=== PATIENT | male | born 1970 | race Caucasian/White ===

== ENCOUNTER → 2018-07-10 | Outpatient (CLI) | payer BC ==
[~2018-07-10] MED LIST: LRT10T PO; TEST200V3 IM
== END | disposition home or self-care (01) ==
LOC: PREOP 05:41
PROVIDERS: ATTEND Surgery
DX: Z01.818 Encounter for other preprocedural examination (principal)

== ENCOUNTER 2018-10-12 09:15 | Outpatient (CLI) | payer BC ==
[~2018-10-12] VITALS: Ht 172.7 cm; Wt 102.1 kg
[2018-10-12] MEDS ORDERED: TEMA30CA PO (11:02)
[2018-10-12] MEDS ORDERED: AMIT25TA9 PO (11:02)
[2018-10-12] MEDS ORDERED: CITA20TA9 PO (11:02)
[2018-10-12] MEDS ORDERED: FENO145T37 PO (11:02)
== END 2018-10-12 11:03 | disposition home or self-care (01) ==
LOC: PREOP 09:15
PROVIDERS: ATTEND Surgery
DX: Z01.818 Encounter for other preprocedural examination (principal)

== ENCOUNTER 2018-10-16 08:11 | Day surgery (SDC) | payer BC ==
[~2018-10-16] VITALS: Ht 172.7 cm; Wt 102.1 kg
[~2018-10-16 08:11] MED LIST changes: +AMIT25TA9 PO; +CITA20TA9 PO; +FENO145T37 PO; +TEMA30CA PO
--- OUTSIDE RECORDS SUMMARY | 2018-10-16 08:14 | XMS REPORT | Continuity of Care Document ---
Author Author [facility] Organization [facility] Address Unknown Phone Unavailable Allergies Active Description Code Type Severity Reaction Onset Reported/Identified Relationship to Patient Clinical Status Yes No Known Drug Allergies [id number] Drug Allergy Unknown N/A 08/01/2010 Medications There is no data. Problems Date Dx Coded Attending Type Code Diagnosis Diagnosed By 08/01/2010 Ot 780.2 11/06/2014 Ot 715.36 11/06/2014 Ot 722.52 06/27/2015 HOWARD MEZA, KEVIN Cutler Ot 721.3 10/02/2015 LURDES MEZA, HUMBERTO Gibson Ot M76.61 10/03/2015 Ot M76.61 02/05/2016 HOWARD MEZA, KEVIN Cutler Ot 721.3 02/05/2016 Ot M76.61 02/05/2016 LURDES MEZA, HUMBERTO Gibson Ot M76.61 02/06/2016 HOWARD MEZA, KEVIN Cutler Ot 721.3 02/06/2016 Ot M76.61 02/06/2016 LURDES MEZA, HUMBERTO Gibson Ot M76.61 07/11/2018 TEAGAN ERWIN DO Ot Z01.818 ENCOUNTER FOR OTHER PREPROCEDURAL EXAMIN 10/12/2018 TEAGAN ERWIN DO Ot Z01.818 ENCOUNTER FOR OTHER PREPROCEDURAL EXAMIN 10/12/2018 TEAGAN ERWIN DO Ot Z01.818 ENCOUNTER FOR OTHER PREPROCEDURAL EXAMIN Procedures There is no data. Results There is no data. Encounters ACCT No. Visit Date/Time Discharge Status Pt. Type Provider Facility Loc./Unit Complaint [id number] 10/12/2018 09:15:00 10/12/2018 11:03:00 DIS Outpatient TEAGAN ERWIN DO [facility] PREOP COLONOSCOPY [id number] 07/17/2018 13:00:00 07/17/2018 23:59:59 CLS Preadmit TEAGAN ERWIN DO [facility] ENDO SCREENING [id number] 07/10/2018 05:41:00 07/10/2018 23:59:59 CLS Outpatient TEAGAN ERWIN DO [facility] PREOP COLONOSCOPY [id number] 09/15/2015 11:59:00 09/15/2015 23:59:59 CLS Outpatient LURDES MEZA, HUMBERTO Gibson [facility] RAD [id number] 06/13/2015 14:46:00 06/13/2015 23:59:59 CLS Outpatient KEVIN LAWRENCE MD [facility] RAD [id number] 09/18/2015 11:20:00 Document Registration [id number] 08/01/2010 16:26:00 Document Registration [id number] 11/25/2009 16:12:00 Document Registration
[2018-10-16] MEDS ORDERED: LACTATED RINGERS 1,000 ML IV STA ×2 (08:20)
[2018-10-16] MEDS ORDERED: LACTATED RINGERS 1,000 ML IV ONE (08:20)
[2018-10-16 08:31] VITALS: BP 137/91
--- NOTE | 2018-10-16 08:39 | Progress Note-Pre Operative ---
Pre-Operative Progress Note H&P Reviewed The H&P was reviewed, patient examined and no changes noted. Time Seen by Provider: 08:36 Date H&P Reviewed: Oct 16, 2018 Time H&P Reviewed: 08:37 Pre-Operative Diagnosis: screening colonoscopy TEAGAN ERWIN DO Oct 16, 2018 08:39
[2018-10-16] MEDS ORDERED: MIDAZOLAM 2 MG/2 ML (VERSED) VIAL ONE (09:24)
[2018-10-16] MEDS ORDERED: PROPOFOL INJECTION 50 ML IV ONE (09:24)
--- NOTE | 2018-10-16 10:07 | Progress Note-Post Operative ---
Post-Operative Progess Note Surgeon (s)/Snuff Blender (s) Surgeon TEAGAN ERWIN DO Snuff Blender: none Pre-Operative Diagnosis screening colonoscopy Post-Operative Diagnosis Polyps Diverticulosis Internal Hemorrhoids Healed Tressa-rectal abscess Procedure & Operative Findings Date of Procedure 10/16/18 Procedure Performed/Findings Colon with snare Injection of marking ink Anesthesia Type IV sedation by POLICE CHIEF DEPUTY Estimated Blood Loss Estimated blood loss (mL): scant Specimens/Packing Specimens Removed Descending colon polyp x 2 TEAGAN ERWIN DO Oct 16, 2018 10:07
--- NOTE | 2018-10-16 10:08 | Endoscopy Discharge Instruct ---
Endo Procedure/Findings Findings 1.: Polyp 2.: Diverticulosis 3.: Internal Hemorrhoids Discharge Instructions - Activity: You might feel a little sleepy until tomorrow. This is due to the medicine you received to relax you. Until tomorrow, you should: NOT drive a car, operate machinery or power tools. NOT drink any alcoholic beverages. NOT make any important decisions or sign importortant papers. Do not return to work until tomorrow, unless otherwise instructed. Resume previous activities tomorrow. Diet: Start by taking liquids. If you tolerate liquids, advance to solid food. make an appointment for one week Instructions: 1.: Colonoscopy in 1 year Notify Physician - If you experience excessive bleeding, unusual abdominal pain, fever, or chest pain, contact your doctor immediately. Follow-Up: - I have received and understand the above instructions and will call my doctor if I have any further questions. Patient Signature Date Nurse Signature Other (Relationship) TEAGAN ERWIN DO Oct 16, 2018 10:08
[2018-10-16 10:10] VITALS: BP 141/97
--- NOTE | 2018-10-16 10:20 | Anesthesia-General Post-Op ---
MAC Patient Condition Mental Status/LOC: Same as Preop Cardiovascular: Satisfactory Nausea/Vomiting: Absent Respiratory: Satisfactory Pain: Controlled Complications: Absent Post Op Complications Complications None Follow Up Care/Instructions Patient Instructions None needed. Anesthesiology Discharge Order Discharge Order Patient is doing well, no complaints, stable vital signs, no apparent adverse anesthesia problems. No complications reported per nursing. WALTER AARON CRNA Oct 16, 2018 10:20
[2018-10-16 10:40] VITALS: BP 142/92
[2018-10-16 10:55] VITALS: BP 142/92
--- NOTE | 2018-10-16 23:57 | OPERATIVE REPORT ---
DATE OF SERVICE: 10/16/2018 PREOPERATIVE DIAGNOSIS: Screening colonoscopy. POSTOPERATIVE DIAGNOSES: 1. Colon polyps. 2. Diverticula. 3. Internal hemorrhoids. 4. Healing perirectal abscess. PROCEDURES: 1. Colonoscopy with snare polypectomy. 2. Injection of ink to prabha the spot. SURGEON: Randall Bonilla DO. TRANSPORT SPECIALIST: None. ANESTHESIA: IV sedation by LINE SUPERVISOR. SPECIMEN: One polyp from the descending colon and then another large polyp from the descending colon. BLOOD LOSS: Scant. FLUIDS: Per anesthesia. POSTOPERATIVE CONDITION: Stable. INDICATION FOR PROCEDURE: The patient is a 48-year-old male who had a history of a perirectal abscess and he had not had a colonoscopy, needed a screening colonoscopy. In addition, we are going to looked to see if the abscess was the rectal fistula or anal fistula. FINDINGS: The patient had a very small polyp in the sigmoid and then a moderately sized polyp and another small polyp in the descending colon and a very large polyp in the descending colon that looked to be coming from a diverticulum. This area was inked. PROCEDURE NOTE: After informed consent was obtained, the patient was brought to the endoscopy suite, placed in the bed in lithotomy position and administered IV sedation by the LINE SUPERVISOR who then monitored his vitals the entire time, heart rate, blood pressure and pulse ox and the scope was inserted, pushed in. In the sigmoid colon saw a small polyp, did snare polypectomy. Unfortunately, after suction this up, could not find it, continued up, saw a very large polyp in the descending colon. I elected to get this on the way out and saw another small polyp, did do a snare polypectomy of a small polyp. Pushed all the way to the cecum, able to get to the cecum, took a picture of the appendiceal orifice, noted the ileocecal valve and then slowly withdrew the scope insufflating to look circumferentially at the vazquez. Looking at the cecum, the ascending colon to the hepatic flexure, then down the transverse colon, splenic flexure and then into the descending colon, saw some diverticula, took pictures and then pulled back to the large polyp. Able to get a snare around this large polyp and then while pulling it actually came from inside the diverticulum. Pictures were taken to document this. Cut the snare around as low as I felt it would be safe to go and then did a hot snare polypectomy to remove this as it was so large had to suction this up to the scope and then carefully pulled the scope all the way out to remove the polyp and then put the scope back in. I elected to ink this area because it was in the diverticula just in case we missed it, inked around the diverticula were the polyp was at 3 spots, got good subcutaneous injection of Aminata ink and then continued down the descending colon into the sigmoid and finally into the rectum, retroflexed the rectal vault, saw some minimal internal hemorrhoids, did not see any connection to the perirectal abscess. He took picture of the perirectal abscess from the outside. It looked like it was healed, but still scarred and he also had what looked like maybe some psoriasis or some scabbing on the left gluteal cheek. The patient tolerated the procedure. He was recovered in the endoscopy suite. Job ID: [id number] DocumentID: [id number] Dictated Date: 10/16/2018 14:57:18 Wire Hanger Date: 10/16/2018 23:57:19 Dictated By: RANDALL BONILLA DO
== END 2018-10-16 10:55 | disposition home or self-care (01) ==
LOC: ENDO 08:11
PROVIDERS: ATTEND Surgery
DX: Z12.11 Encounter for screening for malignant neoplasm of colon (principal); D12.4 Benign neoplasm of descending colon; K63.5 Polyp of colon; K57.30 Diverticulosis of large intestine without perforation or abscess without bleeding; K64.8 Other hemorrhoids; K61.1 Rectal abscess; F32.9 Major depressive disorder, single episode, unspecified; F41.9 Anxiety disorder, unspecified; M51.37 Other intervertebral disc degeneration, lumbosacral region; E66.9 Obesity, unspecified; K21.9 Gastro-esophageal reflux disease without esophagitis; Z68.34 Body mass index [BMI] 34.0-34.9, adult

== ENCOUNTER 2019-10-22 11:00 | Outpatient (CLI) | payer BC ==
[~2019-10-22] VITALS: Ht 170 cm; Wt 104.5 kg
[2019-10-22] MEDS ORDERED: ORPH100T PO (11:01)
== END 2019-10-22 11:40 | disposition home or self-care (01) ==
LOC: PREOP 11:00
PROVIDERS: ATTEND Surgery
DX: Z01.818 Encounter for other preprocedural examination (principal)

== ENCOUNTER 2019-10-26 12:02 | Day surgery (SDC) | payer BC ==
[~2019-10-26] VITALS: Ht 170 cm; Wt 104.5 kg
[~2019-10-26 12:02] MED LIST changes: +ORPH100T PO
[2019-10-26] MEDS ORDERED: LACTATED RINGERS 1,000 ML IV STA (12:04)
[2019-10-26] MEDS ORDERED: LACTATED RINGERS 1,000 ML IV ONE (12:07)
[2019-10-26 12:17] VITALS: BP 142/103
[2019-10-26] MEDS ORDERED: fentaNYL INJECTION 100 MCG/2 ML AMP ONE (12:28)
[2019-10-26] MEDS ORDERED: proPOfol 200 MG/20 ML (DIPRIVAN) VIAL IV ONE ×2 (12:28→12:44)
[2019-10-26] MEDS ORDERED: MIDAZOLAM 2 MG/2 ML (VERSED) VIAL ONE (12:29)
[2019-10-26] MEDS ORDERED: LIDOCAINE PF 2% 5 ML (XYLOCAINE) VIAL ONE (12:29)
--- NOTE | 2019-10-26 12:33 | Progress Note-Pre Operative ---
Pre-Operative Progress Note H&P Reviewed The H&P was reviewed, patient examined and no changes noted. Time Seen by Provider: 12:31 Date H&P Reviewed: Oct 26, 2019 Time H&P Reviewed: 12:32 Pre-Operative Diagnosis: Personal hx of colon polyps TEAGAN ERWIN DO Oct 26, 2019 12:33
[2019-10-26 13:00] VITALS: BP 146/101
[2019-10-26 13:05] VITALS: BP 154/99
[2019-10-26 13:10] VITALS: BP_SYST 170; BP_SYST 173; BP_DIAS 101; BP_DIAS 110
[2019-10-26 13:40] VITALS: BP 170/101
[2019-10-26 14:00] VITALS: BP 138/99
--- NOTE | 2019-10-27 08:42 | OPERATIVE REPORT ---
DATE OF SERVICE: PREOPERATIVE DIAGNOSES: Personal history of colon polyps. POSTOPERATIVE DIAGNOSES: Diverticula, internal hemorrhoids. PROCEDURE: Colonoscopy. SURGEON: Randall Bonilla DO. SUPPLY REQUIREMENTS OFFICER: None. ANESTHESIA: IV sedation by AUTOMATIC DRILLING MACHINE OPERATOR. SPECIMENS: None. BLOOD LOSS: Scant. FLUIDS: Per anesthesia. POSTOPERATIVE CONDITION: Stable. INDICATION FOR PROCEDURE: The patient is a 49-year-old male with a very large polyp removed from his colon last year, tattooed as suspicious and needed to get a repeat colonoscopy. FINDINGS: Could see the area of tattoo. He had some diverticula and some internal hemorrhoids, but no other obvious pathology, no other polyps seen. PROCEDURE NOTE: After informed consent was obtained, the patient was brought to the endoscopy suite, placed in bed in left lateral decubitus position. He was administered IV sedation by the AUTOMATIC DRILLING MACHINE OPERATOR who then monitored his vitals the entire time, heart rate, blood pressure, pulse ox and the scope was inserted, pushed all the way into about 150 cm, on the way noted diverticula, took a picture and then took a picture of appendiceal orifice, noted the ileocecal valve and then slowly withdrew the scope, insufflating to look circumferentially at the vazquez, looking at the cecum, up the ascending colon to the hepatic flexure, then down the transverse colon, the splenic flexure, into the descending colon. In the descending colon, saw the area of tattooing, took a picture of this, looked around, did not see any residual polyps or any residual mass, continued down into the sigmoid, again throughout here, saw some diverticula and then down into the rectum, retroflexed the rectal vault, saw some very minimal internal hemorrhoids, took a picture of this and then removed the scope. The patient tolerated the procedure, recovered in endoscopy suite. Job ID: [id number] DocumentID: [id number] Dictated Date: 10/26/2019 17:23:24 Pizza Driver Date: 10/27/2019 08:41:01 Dictated By: RANDALL BONILLA DO
== END 2019-10-26 14:00 | disposition home or self-care (01) ==
LOC: ENDO 12:02
PROVIDERS: ATTEND Surgery
DX: K57.30 Diverticulosis of large intestine without perforation or abscess without bleeding (principal); K64.8 Other hemorrhoids; M51.36 Other intervertebral disc degeneration, lumbar region; M47.896 Other spondylosis, lumbar region; F32.9 Major depressive disorder, single episode, unspecified; F41.9 Anxiety disorder, unspecified; Z86.010 Personal history of colon polyps; Z90.49 Acquired absence of other specified parts of digestive tract; Z79.899 Other long term (current) drug therapy

== ENCOUNTER → 2022-03-12 | Outpatient (CLI) | payer BC ==
[~2022-03-12] MED LIST changes: +FENO145T26 PO; -FENO145T37 PO
--- NOTE | 2022-03-12 18:04 | Diagnostic Imaging Report ---
PROCEDURE: MRI left joint lower extremity without contrast. TECHNIQUE: Multiplanar, multisequence non contrast-enhanced MRI of the left lower extremity was accomplished. INDICATION: Left knee pain for 3 weeks with no known injury. History of left knee arthroscopy in 1994. COMPARISON: None FINDINGS: No acute fracture or dislocation is seen in the left knee. There are subcortical cystlike changes and edema scattered throughout the left knee with marginal osteophytes. There is a small left knee joint effusion and a small Michelle's cyst. There is cartilage thinning and surface irregularity with a small full-thickness defect inferiorly. There is full-thickness cartilage loss at the medial trochlea. There is full-thickness cartilage loss at the weightbearing aspect of the medial compartment. Articular cartilage in the lateral compartment demonstrates heterogeneity and surface irregularity. There is extensive complex tearing and maceration of the medial meniscus at the posterior horn and extending into the body. The lateral meniscus appears intact. The anterior and posterior cruciate ligaments are intact. The medial collateral ligament is bowed and mildly thickened which may be from old trauma. Adjacent edema is likely due to underlying meniscal pathology. The lateral collateral ligamentous complex is intact. The extensor mechanism is intact. The medial and lateral retinacula are intact. There are small joint bodies posteriorly, the largest measuring up to 7 mm. IMPRESSION: 1. 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 2. Complex tearing and maceration of the medial meniscus. 3. Small left knee joint effusion and small Michelle's cyst with small posterior joint bodies. Dictated by: Dictated on workstation # [id number]
== END ==
LOC: RAD 14:45
PROVIDERS: ATTEND Nurse Practitioner Family
DX: S83.232A Complex tear of medial meniscus, current injury, left knee, initial encounter (principal); M17.12 Unilateral primary osteoarthritis, left knee; M71.22 Synovial cyst of popliteal space [Baker], left knee; X58.XXXA Exposure to other specified factors, initial encounter
CPT/HCPCS: 73721